=== PATIENT | female | born 1980 | race Caucasian/White ===

== ENCOUNTER → 2020-08-31 16:25 | Outpatient (CLI) | payer BC, SELFPAY | DX: Z79.899 Other long term (current) drug therapy (principal) ==

== ENCOUNTER → 2020-11-21 17:10 | Outpatient (CLI) | payer SELFPAY ==
[2020-11-21 17:15] LABS: COC Drug Screen Collection Only
== END ==
DX: Z79.899 Other long term (current) drug therapy (principal)

== ENCOUNTER → 2020-12-20 17:12 | Outpatient (CLI) | payer SELFPAY ==
[2020-12-20 17:14] LABS: COC Drug Screen Collection Only
== END ==
DX: Z79.899 Other long term (current) drug therapy (principal)

== ENCOUNTER → 2021-01-01 16:41 | Outpatient (CLI) | payer SELFPAY ==
[2021-01-01 16:44] LABS: COC Drug Screen Collection Only
== END ==
DX: Z79.899 Other long term (current) drug therapy (principal)

== ENCOUNTER → 2021-02-21 17:13 | Outpatient (CLI) | payer SELFPAY | DX: Z79.899 Other long term (current) drug therapy (principal) ==

== ENCOUNTER → 2021-03-05 17:03 | Outpatient (CLI) | payer SELFPAY | DX: Z79.899 Other long term (current) drug therapy (principal) ==